=== PATIENT | male | born 1990 | race Caucasian/White ===

== ENCOUNTER 2017-07-26 20:07 | Emergency (ER) | payer SELFPAY ==
[~2017-07-26] VITALS: Ht 167.6 cm; Wt 62.9 kg
[~2017-07-26 20:07] MED LIST: BENA25TA8 PO; EPIP0.3I IM; PRED20 PO; RANI150 PO
[2017-07-26 20:13] VITALS: PULSE 88; RESP 20; TEMP 98.5; O2SAT 99
[2017-07-26 20:25] VITALS: BP 122/56
[2017-07-26] MEDS ORDERED: OFLO0.3D9 LEFT EAR (20:37)
--- NOTE | 2017-07-26 20:38 | PD ---
HPI Chief Complaint: ENT Complaint Time Seen by Provider: 20:21 Travel History International Travel<30 days: No Contact w/Intl Traveler<30days: No Traveled to known affect area: No History of Present Illness HPI 27-year-old male presents emergency Department with complaint of left ear pain 3 days. Denies trauma or known foreign body. Says he has problems with earwax. Denies fever, nasal congestion, cough, sore throat. Denies ear drainage. Has not taken any medication or treatments to alleviate symptoms. Symptoms are mild in severity. No known relieving or aggravating factors. Denies significant past medical history. Allergies to bee venom. Does not have an established primary care provider. Has no other medical complaints. No other Modifying factors or associated signs and symptoms. PFSH Past Medical History Medical History: Denies Significant Hx Hx Anticoagulant Therapy: No Cardiovascular Problems: No Chemotherapy: No Cerebrovascular Accident: No Diabetes: No Tetanus Vaccination: > 5 Years Influenza Vaccination: No Past Surgical History Surgical History: No Previous Surgery Social History Alcohol Use: No Tobacco Use: Yes (APPROX. 1 PACK OVER 1-2 DAYS. ) Substance Use: No Allergies-Medications (Allergen,Severity, Reaction): Coded Allergies: bee venom protein (honey bee) (Verified Allergy, Unknown, 07/26/17) STATES A CHILD BUT CAN'T RECALL WHAT THE RECATION WAS Reported Meds & Prescriptions Reported Meds & Active Scripts Active Ofloxacin Otic Drops 0.3 % Drops 10 Drop LEFT EAR DAILY 7 Days Review of Systems Except as stated in HPI: all other systems reviewed are Neg Physical Exam Narrative GENERAL: Well-nourished, well-developed male patient, in no acute distress; afebrile, nontoxic-appearing SKIN: Warm and dry. No rash. HEAD: Atraumatic. Normocephalic. EYES: Pupils equal and round. No scleral icterus. No injection or drainage. ENT: Mucosa pink and moist. No erythema or exudates. No uvular edema. No uvular , palatal, or tonsillar deviation. Airway patent. EARS: Left ear with cerumen impaction. Right pinnae and external canals appear within normal limits. After removal of cerumen from the left ear: Bilateral tympanic membranes without erythema, dullness or perforation. External ear canal with erythema. NECK: Trachea midline. No lymphadenopathy. CARDIOVASCULAR: Regular rate. RESPIRATORY: No accessory muscle use. GASTROINTESTINAL: Flat. MUSCULOSKELETAL: No obvious deformities. No clubbing. No cyanosis. No edema. NEUROLOGICAL: Awake and alert. Oriented 3. No obvious cranial nerve deficits. Motor grossly within normal limits. Normal speech. Moves all extremities. 5/5 strength to all extremities. PSYCHIATRIC: Appropriate mood and affect; insight and judgment normal. Data Data Last Documented VS Vital Signs Date Time Temp Pulse Resp B/P (MAP) Pulse Ox O2 Delivery O2 Flow Rate FiO2 07/26/17 20:25 122/56 (78) 07/26/17 20:13 98.5 88 20 99 Orders Orders Ed Discharge Order (07/26/17 20:38) Ibuprofen (Motrin) (07/26/17 20:45) MDM Medical Decision Making Medical Screen Exam Complete: Yes Emergency Medical Condition: Yes Medical Record Reviewed: Yes Differential Diagnosis Cerumen impaction, foreign body, otitis media, otitis externa Narrative Course 27-year-old male with left ear impacted cerumen. Cerumen impaction removed. The left ear canal is erythematous and mildly edematous. I will treat the patient for otitis externa. Ofloxacin otic drops prescribed for home. Ibuprofen administered prior to discharge. Instructed patient to follow up with primary care provider. Patient verbalizes understanding and agreement with treatment plan. Patient is medically cleared and stable for discharge. Discussed reasons to return to the emergency department. Patient agrees with treatment plan. The patients vital signs are stable and the patient is stable for outpatient follow-up and treatment. Patient discharged home, stable and in no acute distress. Diagnosis Primary Impression: Left ear impacted cerumen Additional Impression: Left otitis externa Qualified Codes: H60.92 - Unspecified otitis externa, left ear Referrals: Primary Care Physician Patient Instructions: Cerumen Impaction (ED), General Instructions, Otitis Externa (ED) Departure Forms: Tests/Procedures, Work Release Enter return to work date: Jul 27, 2017 Additional Instructions: Antibiotic drop as prescribed and complete full course Ibuprofen or Tylenol as directed and as needed to reduce pain and fever [id number] antihistamines or decongestants as directed and as needed for symptom management Avoid getting water in the ears Do not put anything in the ears; including Q-tips Follow-up with primary care provider Return to the emergency department immediately with worsening of symptoms Med/Other Pt SpecificInfo: Prescription(s) given Scripts Ofloxacin Otic Drops (Ofloxacin Otic Drops) 0.3 % Drops 10 DROP LEFT EAR DAILY for Infection for 7 Days, #1 BOTTLE 0 Refills Prov: Diamond Lainez 07/26/17 Disposition: 01 DISCHARGE HOME Condition: Stable Diamond Lainez Jul 26, 2017 20:38
[2017-07-26] MEDS ORDERED: IBUPROFEN 800 MG TAB PO ONE (20:45)
== END 2017-07-26 20:47 | disposition home or self-care (01) ==
LOC: PHEFT 20:07
DX: H61.22 Impacted cerumen, left ear (principal); H60.92 Unspecified otitis externa, left ear; F17.210 Nicotine dependence, cigarettes, uncomplicated
CPT/HCPCS: 99283